=== PATIENT | male | born 1960 | race Asian ===

== ENCOUNTER 2018-02-16 17:53 | Emergency (ER) | payer BC ==
[2018-02-16 21:20] LABS: ABS Basophils 0.1 10^3/ul (0-0.2); ABS Eosinophils 0.1 10^3/ul (0-0.6); ABS Lymphocytes 1.9 10^3/ul (1.0-4.8); ABS Monocytes 0.6 10^3/ul (0-0.8); ABS Neutrophils 5.4 10^3/ul (1.5-7.7); ABS Nucleated RBC 0 10^3/ul; Eosinophil % 0.9 % (0-6); Hematocrit 40 % (42-52); Hemoglobin 13.3 g/dl (14.0-18.0); Lymphocyte % 24.1 % (25-47); Mean Corpuscular HGB Conc 33 g/dl (31-36); Mean Corpuscular Hemoglobin 27 pg (27-31); Mean Corpuscular Volume 84 fL (80-94); Mean Platelet Volume 6.9 um3 (7.4-10.4); Nucleated Red Blood Cells % 0.1; Platelet Count 211 10^3/ul (150-450); Red Blood Count 4.84 10^6/ul (4.00-5.40); Red Cell Distribution Width 15 % (10.5-15); White Blood Count 8.1 10^3/ul (3.5-10.8)
[2018-02-16 21:38] LABS: EGFR Non-African American 143.4 (>60)
[2018-02-16 23:11] VITALS: BP 119/78
--- NOTE | 2018-02-17 01:28 | ED ---
Syncope/Near Syncope - HPI Summary HPI Summary: This is hortencia Hinds Adriel documenting for attending physician Kevin Anna M.D. Pt is a 57 y/o M w/ c/o a syncopal episode today at around 1630. Pt states he went to work at 1430 today. 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 While sitting, he experienced LOC. Co-workers saw him syncopal on the chair. No known head trauma noted. Pt reports not eating lunch today and being out in the sun while going to work. He also notes that he could not sleep last night due to heat. Pt states he feels cool/chilly in the room and on triage he denies pain. He denies Hx of syncopal episodes. - History Of Current Complaint Chief Complaint: EDSyncope Time Seen by Provider: 02/16/18 20:23 Hx Obtained From: Patient Onset/Duration: Sudden Onset Context: Loss Of Consciousness - co-workers found Pt passed out Associated Head Trauma: No Aggravating Factor(s): Nothing Alleviating Factor(s): Nothing Associated Signs And Symptoms: Other - "did not feel well" just before LOC - Allergies/Home Medications Allergies/Adverse Reactions: Allergies Allergy/AdvReac Type Severity Reaction Status Date / Time No Known Allergies Allergy Verified 02/16/18 17:58 Home Medications: Home Medications Unobtainable 02/16/18 [History Confirmed 02/16/18] PMH/Surg Hx/FS Hx/Imm Hx Cardiovascular History: Denies: Hx Syncope - this is pt's first episode Opthamlomology History: Reports: Other Sensory Impairments - atopic conjunctivitis Infectious Disease History: No Infectious Disease History: Denies: Traveled Outside the [place] in Last 30 Days - Social History Alcohol Use: Rare Alcohol Amount: had one beer last night- rare occurance Substance Use Type: Reports: None Smoking Status (MU): Never Smoked Tobacco Review of Systems Positive: Other - "not feeling well" right before syncopal episode Positive: Syncope All Other Systems Reviewed And Are Negative: Yes Physical Exam - Summary Physical Exam Summary: Appearance: Well-appearing, Well-nourished, lying in bed comfortably Skin: Warm, dry, no obvious rash Eyes: sclera anicteric, no conjunctival pallor ENT: mucous membranes moist, pharynx appears normal Neck: Supple, nontender Respiratory: Clear to auscultation, no signs of respiratory distress Cardiovascular: Normal S1, S2. No murmurs. Normal distal pulses in tibial and radial bilaterally. Abdomen: Soft, nontender, normal active bowel sounds present Musculoskeletal: Normal, Strength/ROM Intact Neurological: A&Ox3, awake and alert, mentation is normal, speech is fluent and appropriate Psychiatric: affect is normal, does not appear anxious or depressed Triage Information Reviewed: Yes Vital Signs On Initial Exam: Initial Vitals Temp Pulse Resp BP Pulse Ox 98.8 F 70 16 139/84 99 02/16/18 17:55 02/16/18 17:55 02/16/18 17:55 02/16/18 17:55 02/16/18 17:55 Vital Signs Reviewed: Yes Diagnostics - Vital Signs Vital Signs Temp Pulse Resp BP Pulse Ox 02/16/18 23:10 97.5 F 68 16 119/78 99 02/16/18 21:00 64 13 99 02/16/18 20:25 74 29 145/90 100 02/16/18 20:24 69 14 100 02/16/18 19:37 98.8 F 61 16 138/82 100 02/16/18 17:55 98.8 F 70 16 139/84 99 - Laboratory Lab Results: Lab Results 02/16/18 02/16/18 Range/Units 21:10 21:10 WBC 8.1 (3.5-10.8) 10^3/ul RBC 4.84 (4.00-5.40) 10^6/ul Hgb 13.3 L (14.0-18.0) g/dl Hct 40 L (42-52) % MCV 84 (80-94) fL MCH 27 (27-31) pg MCHC 33 (31-36) g/dl RDW 15 (10.5-15) % Plt Count 211 (150-450) 10^3/ul MPV 6.9 L (7.4-10.4) um3 Neut % (Auto) 67.4 (38-83) % Lymph % (Auto) 24.1 L (25-47) % [place] % (Auto) 6.8 (0-7) % Eos % (Auto) 0.9 (0-6) % Baso % (Auto) 0.8 (0-2) % Absolute Neuts (auto) 5.4 (1.5-7.7) 10^3/ul Absolute Lymphs (auto) 1.9 (1.0-4.8) 10^3/ul Absolute Monos (auto) 0.6 (0-0.8) 10^3/ul Absolute Eos (auto) 0.1 (0-0.6) 10^3/ul Absolute Basos (auto) 0.1 (0-0.2) 10^3/ul Absolute Nucleated RBC 0 10^3/ul Nucleated RBC % 0.1 Sodium 140 (135-145) mmol/L Potassium 4.2 (3.5-5.0) mmol/L Chloride 106 (101-111) mmol/L Carbon Dioxide 27 (22-32) mmol/L Anion Gap 7 (2-11) mmol/L BUN 7 (6-24) mg/dL Creatinine 0.58 L (0.67-1.17) mg/dL Est GFR ( Amer) 173.5 (>60) Est GFR (Non-Af Amer) 143.4 (>60) BUN/Creatinine Ratio 12.1 (8-20) Glucose 99 (70-100) mg/dL Calcium 9.3 (8.6-10.3) mg/dL Total Bilirubin 0.50 (0.2-1.0) mg/dL AST 17 (13-39) U/L ALT 25 (7-52) U/L Alkaline Phosphatase 41 (34-104) U/L Troponin I 0.00 (<0.04) ng/mL Total Protein 7.3 (6.4-8.9) g/dL Albumin 4.2 (3.2-5.2) g/dL Globulin 3.1 (2-4) g/dL Albumin/Globulin Ratio 1.4 (1-3) Result Diagrams: 02/16/18 21:10 02/16/18 21:10 Lab Statement: Any lab studies that have been ordered have been reviewed, and results considered in the medical decision making process. - Radiology CXR Xray Interpretation: No Acute Changes Radiology Interpretation Completed By: ED Physician - No acute findings, pending official report - EKG 2049 Cardiac Rate: NL - Rate of 62 BPM EKG Rhythm: Sinus Rhythm EKG Interpretation: Normal EKG Course/Dx - Diagnoses Differential Diagnosis/HQI/PQRI: Positive: Vasovagal Episode. Negative: Coronary Artery Disease, GI Bleed, Myocardial Infarction, Pulmonary Embolism Provider Diagnoses: Vasovagal syncope Discharge - Sign-Out/Discharge Documenting (check all that apply): Patient Departure - Discharge Plan Condition: Good Disposition: HOME Patient Education Materials: Syncope (ED) Forms: *Work Release Referrals: Nivia Pinto MD [Primary Care Provider] - - Billing Disposition and Condition Condition: GOOD Disposition: Home
--- NOTE | 2018-02-17 08:01 | RAD ---
INDICATION: Syncope COMPARISON: None TECHNIQUE: PA and lateral views of the chest were obtained. FINDINGS: The heart and mediastinum are normal in size and contour. The lungs are grossly clear. There is no evidence of large pleural effusion. Visualized bones are normal for the patient's age. There is no radiographic evidence of free air beneath the diaphragm IMPRESSION: No radiographic evidence of acute cardiopulmonary disease.
== END 2018-02-16 23:10 | disposition home or self-care (01) ==
LOC: ED 17:53
DX: R55 Syncope and collapse (principal)
CPT/HCPCS: 36415; 71046; 80053; 84484; 85025; 86703; 93005; 99282

== ENCOUNTER 2018-09-29 20:07 | Emergency (ER) | payer BC ==
[2018-09-29] MEDS ORDERED: NS 0.9% 1000 ML** 1,000 ML IV ONE (22:20)
[2018-09-29 22:47] LABS: ABS Basophils 0.1 10^3/ul (0-0.2); ABS Eosinophils 0.1 10^3/ul (0-0.6); ABS Lymphocytes 2.3 10^3/ul (1.0-4.8); ABS Monocytes 0.7 10^3/ul (0-0.8); ABS Neutrophils 2.9 10^3/ul (1.5-7.7); ABS Nucleated RBC 0 10^3/ul; Eosinophil % 1.7 %; Hematocrit 41 % (42-52); Hemoglobin 13.1 g/dl (14.0-18.0); Lymphocyte % 37.2 %; Mean Corpuscular HGB Conc 32 g/dl (31-36); Mean Corpuscular Hemoglobin 27 pg (27-31); Mean Corpuscular Volume 85 fL (80-94); Nucleated Red Blood Cells % 0.1; Platelet Count 232 10^3/ul (150-450); Red Blood Count 4.81 10^6/ul (4.00-5.40); Red Cell Distribution Width 15 % (10.5-15); White Blood Count 6.1 10^3/ul (3.5-10.8)
--- NOTE | 2018-09-29 23:01 | ED ---
Dizziness - HPI Summary HPI Summary: Patient complains of an episode of "vision going cloudy" for couple minutes at 1700 today. describes symptoms as lightheadedness, states patient has these symptoms intermittently. is much more proficient with Sudanese then patient. Associated symptoms are vomiting 1. Patient also complains of cough 2 days. Lower abdominal pain mentioned in triage note was 2-3 days ago and has since resolved. Patient states history of same abdominal pain intermittently which he describes as heartburn, usually resolved with Tums. Denies headache, dizziness, imbalance, focal deficits, AMS, fever, ear pain, sore throat, neck stiffness, CP, SOB, diarrhea, abdominal pain, change in urine , change in BM. Patient continued to work afterwards. Medical history is HTN. History of vasovagal syncope. - History Of Current Complaint Chief Complaint: EDDizziness Stated Complaint: DIZZINESS/VOMITING Time Seen by Provider: 09/29/18 22:10 Hx Obtained From: Patient Onset/Duration: Resolved Timing: Minutes Severity Initially: Mild Severity Currently: None Character: Lightheaded Aggravating Factor(s): Nothing Alleviating Factor(s): Rest Associated Signs And Symptoms: Positive: Nausea, Vomiting, Visual Changes - Allergies/Home Medications Allergies/Adverse Reactions: Allergies Allergy/AdvReac Type Severity Reaction Status Date / Time No Known Allergies Allergy Verified 02/16/18 17:58 PMH/Surg Hx/FS Hx/Imm Hx Endocrine/Hematology History: Denies: Hx Anticoagulant Therapy Cardiovascular History: Reports: Hx Syncope - this is pt's first episode Denies: Hx Pacemaker/ICD History: Denies: Hx Dialysis Sensory History: Reports: Other Sensory Impairments - atopic conjunctivitis Opthamlomology History: Reports: Other Sensory Impairments - atopic conjunctivitis EENT History: Denies: Hx Deafness Neurological History: Denies: Hx Dementia Psychiatric History: Denies: Hx Autism Infectious Disease History: No Infectious Disease History: Denies: Traveled Outside the [place] in Last 30 Days - Social History Alcohol Use: Rare Alcohol Amount: had one beer last night- rare occurance Substance Use Type: Reports: None Smoking Status (MU): Never Smoked Tobacco Review of Systems Constitutional: Negative Eyes: Other ENT: Negative Cardiovascular: Negative Positive: Cough Positive: Vomiting, Nausea Genitourinary: Negative Musculoskeletal: Negative Skin: Negative Neurological: Negative Psychological: Normal All Other Systems Reviewed And Are Negative: Yes Physical Exam - Summary Physical Exam Summary: Neuro exam normal. Abdomen soft nontender. Lung sounds clear to auscultation bilaterally. Triage Information Reviewed: Yes Vital Signs On Initial Exam: Initial Vitals Temp Pulse Resp BP Pulse Ox 98.3 F 74 18 136/85 97 09/29/18 20:19 09/29/18 20:19 09/29/18 20:19 09/29/18 20:19 09/29/18 20:19 Vital Signs Reviewed: Yes Appearance: Positive: Well-Appearing Skin: Positive: Warm Head/Face: Positive: Normal Head/Face Inspection Eyes: Positive: Normal ENT: Positive: Normal ENT inspection Neck: Positive: Supple Respiratory/Lung Sounds: Positive: Clear to Auscultation Cardiovascular: Positive: Normal Abdomen Description: Positive: Nontender Musculoskeletal: Positive: Normal Neurological: Positive: Normal Psychiatric: Positive: Normal AVPU Assessment: Alert - [place] Coma Scale Best Eye Response: 4 - Spontaneous Best Motor Response: 6 - Obeys Commands Best Verbal Response: 5 - Oriented Coma Scale Total: 15 Diagnostics - Vital Signs Vital Signs Temp Pulse Resp BP Pulse Ox 09/29/18 22:12 70 97 09/29/18 22:10 69 106/65 96 09/29/18 20:19 98.3 F 74 18 136/85 97 - Laboratory Lab Results: Lab Results 09/29/18 Range/Units 22:35 WBC 6.1 (3.5-10.8) 10^3/ul RBC 4.81 (4.00-5.40) 10^6/ul Hgb 13.1 L (14.0-18.0) g/dl Hct 41 L (42-52) % MCV 85 (80-94) fL MCH 27 (27-31) pg MCHC 32 (31-36) g/dl RDW 15 (10.5-15) % Plt Count 232 (150-450) 10^3/ul MPV 7.0 L (7.4-10.4) fL Neut % (Auto) 48.3 % Lymph % (Auto) 37.2 % [place] % (Auto) 11.8 % Eos % (Auto) 1.7 % Baso % (Auto) 1.0 % Absolute Neuts (auto) 2.9 (1.5-7.7) 10^3/ul Absolute Lymphs (auto) 2.3 (1.0-4.8) 10^3/ul Absolute Monos (auto) 0.7 (0-0.8) 10^3/ul Absolute Eos (auto) 0.1 (0-0.6) 10^3/ul Absolute Basos (auto) 0.1 (0-0.2) 10^3/ul Absolute Nucleated RBC 0 10^3/ul Nucleated RBC % 0.1 Result Diagrams: 09/29/18 22:35 09/29/18 22:35 Lab Statement: Any lab studies that have been ordered have been reviewed, and results considered in the medical decision making process. Dizzy Course/Dx - Course Course Of Treatment: Patient complains of an episode of "vision going cloudy" for couple minutes at 1700 today. describes symptoms as lightheadedness, states patient has these symptoms intermittently. is much more proficient with Sudanese then patient. Associated symptoms are vomiting 1. Patient also complains of cough 2 days. Lower abdominal pain mentioned in triage note was 2 -3 days ago and has since resolved. Patient states history of same abdominal pain intermittently which he describes as heartburn, usually resolved with Tums. Denies headache, dizziness, imbalance, focal deficits, AMS, fever, ear pain, sore throat, neck stiffness, CP, SOB, diarrhea, abdominal pain, change in urine, change in BM. Patient continued to work afterwards. Medical history is HTN. History of vasovagal syncope. Physical exam:Neuro exam normal. Abdomen soft nontender. Lung sounds clear to auscultation bilaterally. Vital signs within normal limits. Labs unremarkable. EKG sinus rhythm. Chest x-ray unremarkable. - Diagnoses Provider Diagnoses: Nausea, Lightheadedness Discharge - Sign-Out/Discharge Documenting (check all that apply): Patient Departure Patient Received Moderate/Deep Sedation with Procedure: No - Discharge Plan Condition: Stable Disposition: HOME Patient Education Materials: Lightheadedness (ED) Referrals: Nivia Pinto MD [Primary Care Provider] - Additional Instructions: Drink plenty of fluids to maintain hydration. Follow-up with primary care. Return to the ED for any new or worsening symptoms - Billing Disposition and Condition Condition: STABLE Disposition: Home
[2018-09-29 23:03] LABS: ALT 38 U/L (7-52); AST 23 U/L (13-39); Albumin 4.3 g/dL (3.2-5.2); Albumin/Globulin Ratio 1.5 (1-3); Alkaline Phosphatase 50 U/L (34-104); Anion Gap 5 mmol/L (2-11); BUN/Creatinine Ratio 15.8 (8-20); Blood Urea Nitrogen 9 mg/dL (6-24); CO2 Carbon Dioxide 27 mmol/L (22-32); Calcium 9.1 mg/dL (8.6-10.3); Chloride 106 mmol/L (101-111); EGFR African American 176.4 (>60); EGFR Non-African American 145.8 (>60); Globulin 2.9 g/dL (2-4); Glucose 100 mg/dL (70-100); Magnesium 2.3 mg/dL (1.9-2.7); Potassium 4.2 mmol/L (3.5-5.0); Sodium 138 mmol/L (135-145); Total Protein 7.2 g/dL (6.4-8.9)
[2018-09-29 23:40] LABS: Urine Appearance Clear; Urine Bilirubin Negative (Negative); Urine Blood Negative (Negative); Urine Color Straw; Urine Glucose Negative (Negative); Urine Ketones Negative (Negative); Urine Nitrite Negative (Negative); Urine Protein Negative (Negative); Urine Specific Gravity 1.005 (1.010-1.030); Urine Urobilinogen Negative (Negative)
[2018-09-29 23:42] LABS: TSH (Thyroid Stimulating Horm) 1.53 mcIU/mL (0.34-5.60)
[2018-09-30 00:30] LABS: C Reactive Protein < 1.00 mg/L (<8.01)
[2018-09-30 01:16] VITALS: BP 98/70
== END 2018-09-30 01:18 | disposition home or self-care (01) ==
LOC: ED 20:07
DX: R42 Dizziness and giddiness (principal); R11.2 Nausea with vomiting, unspecified; R05 Cough
CPT/HCPCS: 36415; 71046; 80053; 81003; 83605; 83735; 83880; 84443; 84484; 85025; 86140; 93005; 96360; 99283

== ENCOUNTER 2019-05-03 11:30 | Emergency (ER) | payer BC ==
[2019-05-03 11:56] VITALS: BP 130/82
[2019-05-03] MEDS ORDERED: Fluorescein Sodium TOPICAL* 1 MG TEST STRIP OPHTHALMIC ONE (11:57)
[2019-05-03] MEDS ORDERED: Tetracaine 0.5% OPTH.SOL 4 ML* 1 DROP BTL LEFT EYE ONE (11:57)
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
== END 2019-05-03 12:24 | disposition home or self-care (01) ==
LOC: UCEAST 11:30
DX: S05.01XA Injury of conjunctiva and corneal abrasion without foreign body, right eye, initial encounter (principal); X58.XXXA Exposure to other specified factors, initial encounter; Y93.89 Activity, other specified; Y92.9 Unspecified place or not applicable
CPT/HCPCS: 99212; A9270-GY; G0463